=== PATIENT | female | born 1955 | race Caucasian/White ===

== ENCOUNTER → 2017-02-09 | Outpatient (CLI) | payer OTHER | LOC: BHFA 09:00 | PROVIDERS: ATTEND Internal Medicine Cardiovascular Disease | DX: R94.31 Abnormal electrocardiogram [ECG] [EKG] (principal); I44.7 Left bundle-branch block, unspecified | CPT/HCPCS: 78452; 93017; A9500; J2785 ==

== ENCOUNTER 2017-03-19 09:22 | Day surgery (SDC) | payer OTHER ==
[2017-03-19] MEDS ORDERED: diphenhydrAMINE 25 MG CAP PO ONE (09:27)
[2017-03-19] MEDS ORDERED: FAMOTIDINE 20 MG TAB PO ONE (09:27)
[2017-03-19] MEDS ORDERED: ASPIRIN EC 325 MG TAB PO ONE (09:27)
[2017-03-19] MEDS ORDERED: DIAZEPAM 5 MG TAB PO ONE ×2 (09:27→10:15)
[2017-03-19] MEDS ORDERED: NS 1,000 ML IV ONE (09:27)
--- NOTE | 2017-03-19 09:43 | CPEKG ---
Heart Rate: 64 RR Interval: 938 P-R Interval: 184 QRSD Interval: 138 QT Interval: 484 QTC Interval: 500 P [place]: 46 QRS [place]: -34 T Wave [place]: 123 EKG Severity - ABNORMAL ECG - EKG Impression: SINUS RHYTHM EKG Impression: LEFT BUNDLE BRANCH BLOCK Electronically Signed By: Sami Bolden 19-Mar-2017 12:41:58
[2017-03-19 10:00] LABS: PLATELET COUNT 236 10^3/uL (150-400)
[2017-03-19] MEDS ORDERED: DIAZEPAM 5 MG TAB ONE (10:00)
[2017-03-19 10:11] LABS: INR 0.95 (0.83-1.16); PROTIME(PATIENT) 12.9 SEC (12.0-15.0)
[2017-03-19] MEDS ORDERED: LIDOCAINE 1% 300 MG/30 ML SDV ONE ×2 (10:17→11:45)
[2017-03-19] MEDS ORDERED: HEPARIN 10,000 UNIT/10 ML MDV ONE ×2 (10:18→11:46)
[2017-03-19] MEDS ORDERED: fentaNYL 100 MCG/2 ML INJ ONE ×2 (10:18→11:45)
[2017-03-19] MEDS ORDERED: MIDAZOLAM 2 MG/2 ML VIAL ONE ×3 (10:18→11:46)
[2017-03-19] MEDS ORDERED: IOPAMIDOL (ISOVUE-370) 150 ML BTL IV ONE ×2 (10:18→11:46)
[2017-03-19] MEDS ORDERED: VERAPAMIL 5 MG/2 ML VIAL ONE ×2 (10:18→11:46)
--- NOTE | 2017-03-19 10:43 | PDHPUP ---
History & Physical Update H&P update statement: This history and physical update is based on an assessment of the patient which was completed after admission or registration (within 24 hours), but prior to the surgery/procedure. H&P update: H&P reviewed & patient examined, no change in patient's condition since H&P completed
--- NOTE | 2017-03-19 10:44 | PDPROPOC ---
Sedation Plan of Care Sedation Plan of Care: vital signs stable, mental status noted, patient educated of risks, benefits, alternatives, patient can tolerate sedation ASA Classification: ASA 2 Planned drugs: fentanyl, midazolam Mallampati Score: Class 1 Mallampati Reference Image: Patient passed 3-3-2 rule?: Yes
[2017-03-19] MEDS ORDERED: HYDROCODONE/APAP 5/325 TAB PO PRN (11:33)
[2017-03-19] MEDS ORDERED: OXYCODONE/APAP 5/325 TAB PO PRN (11:33)
[2017-03-19] MEDS ORDERED: ONDANSETRON 4 MG/2 ML VIAL IVP PRN (11:33)
[2017-03-19] MEDS ORDERED: NITROGLYCERIN 0.4 MG BTL SL PRN (11:33)
[2017-03-19] MEDS ORDERED: ATROPINE SULFATE 1 MG/10 ML SYR IVP PRN (11:33)
--- NOTE | 2017-03-19 11:33 | PDDXCAT ---
Diagnostic Cath Note - . Date: 03/19/17 Data Report Analyst: Cristobal Indication: Class I/II angina, intolerance to med therapy or failure to respond High-risk criteria on non-invasive testing: stress-induced moderate-size multiple perfusion defects - Procedure Access: right groin Procedure: left heart catheterization, coronary angiography - Materials Left Heart Cath size: 5F Left Heart Cath materials: standard multipack (JL4, JR4, pigtail) - Findings-Left Heart Catheterization LM: Short unobstructed LAD: Normal LCX: Normal RCA: Dominant: Normal EDP: 15 mm of mercury LVEF: 70% Wall motion: Normal Complications: Attempts at access from the right radial artery limited. Estimated blood loss: <50ml Closure method: TR Band Assessment: Angiographically normal coronary arteries. Normal left ventricular systolic function. Inability to access the coronary system via the right radial artery due to tortuosity. Plan: No contraindications to surgery identified by this study. Continue primary prevention. Patient Problems: Problems Problem Status Onset LBBB (left bundle branch block) Acute
== END 2017-03-19 18:55 | disposition home or self-care (01) ==
LOC: FCATH 09:22
PROVIDERS: ATTEND Internal Medicine Interventional Cardiology
PROC: B2151ZZ Fluoroscopy of Left Heart using Low Osmolar Contrast (ICD-10-PCS; principal; 2017-03-19)
PROC: B2111ZZ Fluoroscopy of Multiple Coronary Arteries using Low Osmolar Contrast (ICD-10-PCS; principal; 2017-03-19)
PROC: 4A023N7 Measurement of Cardiac Sampling and Pressure, Left Heart, Percutaneous Approach (ICD-10-PCS; principal; 2017-03-19)
DX: I44.7 Left bundle-branch block, unspecified (principal); R94.39 Abnormal result of other cardiovascular function study; R06.02 Shortness of breath; R53.83 Other fatigue; E03.9 Hypothyroidism, unspecified; H53.033 Strabismic amblyopia, bilateral; Z86.73 Personal history of transient ischemic attack (TIA), and cerebral infarction without residual deficits
CPT/HCPCS: 93005; 93458; C1769; J1644; J2250; J3010; Q9967

== ENCOUNTER → 2017-03-26 | Outpatient (CLI) | payer OTHER | LOC: FIMAGING 13:22 | PROVIDERS: ATTEND Family Medicine | DX: Z12.31 Encounter for screening mammogram for malignant neoplasm of breast (principal); Z80.3 Family history of malignant neoplasm of breast ==

== ENCOUNTER → 2017-06-22 | Outpatient (CLI) | payer OTHER | LOC: FIMAGING 16:35 | PROVIDERS: ATTEND Physician Assistant | DX: R05 Cough (principal) ==

== ENCOUNTER → 2018-01-19 | Outpatient (CLI) | payer OTHER, MEDICAID | LOC: FIMAGING 15:08 | PROVIDERS: ATTEND Physician Assistant | DX: N60.02 Solitary cyst of left breast (principal); R92.8 Other abnormal and inconclusive findings on diagnostic imaging of breast ==

== ENCOUNTER 2018-07-14 22:22 | Emergency (ER) | payer OTHER, MEDICAID | END 2018-07-15 00:08 | disposition home or self-care (01) | DX: S82.62XA Displaced fracture of lateral malleolus of left fibula, initial encounter for closed fracture (principal); X50.1XXA Overexertion from prolonged static or awkward postures, initial encounter; Z87.891 Personal history of nicotine dependence ==

== ENCOUNTER → 2018-08-10 | Outpatient (CLI) | payer OTHER, MEDICAID | LOC: FLAB 15:57 → FIMAGING 15:57 → EDSTATUS 16:01 | DX: S82.832D Other fracture of upper and lower end of left fibula, subsequent encounter for closed fracture with routine healing (principal) ==